=== PATIENT | male | born 2000 | race Caucasian/White ===

== ENCOUNTER 2022-03-12 19:11 | Emergency (ER) | payer BC ==
[~2022-03-12] VITALS: Ht 182.9 cm; Wt 79.4 kg
--- NOTE | 2022-03-12 20:12 | NUR ---
rad at bedside
[2022-03-12] MEDS ORDERED: METH4TAB3 PO (22:24)
[2022-03-12 22:32] VITALS: BP 111/60
== END 2022-03-12 22:33 | disposition home or self-care (01) ==
LOC: ER 19:21
DX: S39.012A Strain of muscle, fascia and tendon of lower back, initial encounter (principal); M51.36 Other intervertebral disc degeneration, lumbar region; Z60.2 Problems related to living alone; X50.0XXA Overexertion from strenuous movement or load, initial encounter; Y93.43 Activity, gymnastics; Y92.39 Other specified sports and athletic area as the place of occurrence of the external cause; Y99.8 Other external cause status
CPT/HCPCS: 72100-TC